=== PATIENT | female | born 1985 | race African-American/Black ===

== ENCOUNTER 2016-12-02 11:45 | Emergency (ER) | payer BC, MEDICAID ==
[~2016-12-02] VITALS: Ht 157.5 cm; Wt 72.0 kg
[2016-12-02] MEDS ORDERED: SODIUM CHLORIDE 0.9% 1,000 ML IV ONE (12:24)
[2016-12-02] MEDS ORDERED: ONDANSETRON 2MG/ML, 2ML IVPush ONE (12:30)
[2016-12-02] MEDS ORDERED: DIPHENHYDRAMINE 50 MG/ML, 1ML IVPush ONE (12:30)
[2016-12-02] MEDS ORDERED: METOCLOPRAMIDE 5 MG/ML, 2ML IVPush ONE (12:30)
[2016-12-02] MEDS ORDERED: FAMOTIDINE 20 MG/2 ML IVP ONE (12:30)
[2016-12-02] MEDS ORDERED: SODIUM CHLORIDE FLUSH 10ML SYR IVF ONE (12:30)
[2016-12-02] MEDS ORDERED: SODIUM CHLORIDE 0.9% 1,000ML IVBOLUS ONE (12:30)
[2016-12-02] MEDS ORDERED: ONDANSETRON 2MG/ML, 2ML ONE (12:49)
[2016-12-02] MEDS ORDERED: FAMOTIDINE 20 MG/2 ML ONE (12:49)
[2016-12-02] MEDS ORDERED: DIPHENHYDRAMINE 50 MG/ML, 1ML ONE (12:49)
[2016-12-02] MEDS ORDERED: METOCLOPRAMIDE 5 MG/ML, 2ML ONE (12:49)
[2016-12-02 12:55] LABS: HEMATOCRIT 43.5 % (34.6-47.8); HEMOGLOBIN 14.8 g/dL (11.7-16.4); WHITE BLOOD COUNT 11.1 x10^3/uL (3.4-10)
[2016-12-02 13:07] LABS: ASPARTATE AMINO TRANSFERASE 11 U/L (15-37); BLOOD UREA NITROGEN 7 mg/dL (7-18)
[2016-12-02 16:31] VITALS: BP 115/55
[2016-12-03] MEDS ORDERED: PHENERGAN SUPPOS (22:03)
[2016-12-03] MEDS ORDERED: ZOFRAN (22:03)
[2016-12-03] MEDS ORDERED: BENADRYL (22:03)
== END 2016-12-02 16:33 | disposition home or self-care (01) ==
LOC: ED 15:39
DX: O21.0 Mild hyperemesis gravidarum (principal); Z3A.21 21 weeks gestation of pregnancy
CPT/HCPCS: 36415; 80053; 81001; 85025; 96361; 96374; 96375; 99285; J1200; J2405; J2765; J7030; S0028

== ENCOUNTER 2016-12-03 21:56 | Inpatient (IN) | payer BC, MEDICAID ==
[~2016-12-03] VITALS: Ht 157.5 cm; Wt 71.4 kg
[2016-12-03] MEDS ORDERED: PHENERGAN SUPPOS (22:03)
[2016-12-03] MEDS ORDERED: ZOFRAN (22:03)
[2016-12-03] MEDS ORDERED: BENADRYL (22:03)
[2016-12-03] MEDS ORDERED: METOCLOPRAMIDE 5 MG/ML, 2ML ONE (22:48)
[2016-12-03] MEDS ORDERED: DIPHENHYDRAMINE 50 MG/ML, 1ML ONE (22:48)
[2016-12-03] MEDS ORDERED: ONDANSETRON 2MG/ML, 2ML ONE (22:49)
[2016-12-03] MEDS ORDERED: METOCLOPRAMIDE 5 MG/ML, 2ML IVPush ONE (23:00)
[2016-12-03] MEDS ORDERED: DIPHENHYDRAMINE 50 MG/ML, 1ML IVPush ONE (23:00)
[2016-12-03] MEDS ORDERED: SODIUM CHLORIDE 0.9% 1,000ML IVBOLUS ONE (23:00)
[2016-12-03] MEDS ORDERED: SODIUM CHLORIDE FLUSH 10ML SYR IVF ONE (23:00)
[2016-12-03] MEDS ORDERED: ONDANSETRON 2MG/ML, 2ML IVPush ONE (23:00)
[2016-12-03] MEDS ORDERED: PROMETHAZINE 25 MG/ML, 1ML IM PRN (23:30)
[2016-12-04] MEDS: D5%-0.9% NACL 1,000 ML IV SCH ×4 (00:40→21:40)
[2016-12-04 00:49] VITALS: BP 107/67
[2016-12-04 00:51] VITALS: BP 107/67
[2016-12-04] MEDS: METOCLOPRAMIDE 5 MG/ML, 2ML IVPush PRN ×2 (05:24→13:11)
[2016-12-04] MEDS: ONDANSETRON 2MG/ML, 2ML IVPush PRN ×2 (05:24→13:11)
[2016-12-04 05:31] LABS: BLOOD UREA NITROGEN 4 mg/dL (7-18)
[2016-12-04 06:40] VITALS: BP 100/60
[2016-12-04 13:03] VITALS: BP 100/58
[2016-12-04] MEDS: DIPHENHYDRAMINE 50 MG/ML, 1ML IVPush PRN (13:10)
[2016-12-04] MEDS ORDERED: POTASSIUM CHLORIDE 20 MEQ TAB.ER.PRT PO ONE (14:00)
[2016-12-04] MEDS: HEPARIN 5,000 UNITS/ML, 1ML SQ SCH (16:26)
[2016-12-04] MEDS: PYRIDOXINE 50MG TABLET PO SCH (18:12)
[2016-12-04] MEDS: DOXYLAMINE 25MG TABLET PO SCH (18:13)
[2016-12-04 18:31] VITALS: BP 101/64
[2016-12-05] MEDS: METOCLOPRAMIDE 5 MG/ML, 2ML IVPush PRN ×3 (01:14→15:56)
[2016-12-05] MEDS: DIPHENHYDRAMINE 50 MG/ML, 1ML IVPush PRN ×3 (01:14→15:56)
[2016-12-05] MEDS: ONDANSETRON 2MG/ML, 2ML IVPush PRN ×3 (01:14→15:56)
[2016-12-05] MEDS: HEPARIN 5,000 UNITS/ML, 1ML SQ SCH ×2 (01:15→10:16)
[2016-12-05 01:16] VITALS: BP 112/72
[2016-12-05] MEDS: D5%-0.9% NACL 1,000 ML IV SCH ×2 (04:07→10:16)
[2016-12-05 04:45] LABS: HEMOGLOBIN 12.8 g/dL (11.7-16.4); WHITE BLOOD COUNT 9.1 x10^3/uL (3.4-10)
[2016-12-05 04:54] LABS: BLOOD UREA NITROGEN 2 mg/dL (7-18)
[2016-12-05 07:13] VITALS: BP 110/75
[2016-12-05] MEDS: PYRIDOXINE 50MG TABLET PO SCH (08:09)
[2016-12-05] MEDS: DOXYLAMINE 25MG TABLET PO SCH (08:09)
[2016-12-05] MEDS ORDERED: PYRIDOXINE 50MG TABLET PO SCH ×2 (09:00)
[2016-12-05] MEDS ORDERED: DOXYLAMINE 25MG TABLET PO SCH (09:00)
[2016-12-05 13:59] VITALS: BP 105/70
[2016-12-05] MEDS ORDERED: PYRI50TA5 PO (14:43)
[2016-12-05] MEDS ORDERED: DOXY25TA45 PO (14:43)
== END 2016-12-05 17:03 | disposition home or self-care (01) | DRG 781 ==
LOC: ED 23:18 → SUATTDRO 23:23 → EDIP 23:25 → 3NE 12-04 00:30
PROVIDERS: ADMIT Hospitalist; ATTEND Hospitalist
DX: O21.1 Hyperemesis gravidarum with metabolic disturbance (principal); E86.0 Dehydration; Z3A.12 12 weeks gestation of pregnancy
CPT/HCPCS: 36415; 80048; 81001; 83735; 84100; 84443; 85025; 87086; 96361; 96374; 96375; J1644; J2405; J7042; J1200; J2765; J7030

== ENCOUNTER 2016-12-22 08:46 | Emergency (ER) | payer BC, MEDICAID ==
[~2016-12-22] VITALS: Ht 157.5 cm; Wt 68.9 kg
[~2016-12-22 08:46] MED LIST: BENADRYL; DOXY25TA45 PO; PHENERGAN SUPPOS; PYRI50TA5 PO; ZOFRAN
[2016-12-22] MEDS ORDERED: ONDANSETRON 2MG/ML, 2ML IVPush ONE (09:30)
[2016-12-22] MEDS ORDERED: SODIUM CHLORIDE 0.9% 1,000ML IVBOLUS ONE ×2 (09:30→11:30)
[2016-12-22] MEDS ORDERED: ONDANSETRON 2MG/ML, 2ML ONE (09:44)
[2016-12-22 09:51] LABS: HEMOGLOBIN 15.1 g/dL (11.7-16.4); WHITE BLOOD COUNT 11.6 x10^3/uL (3.4-10)
[2016-12-22 10:05] LABS: BLOOD UREA NITROGEN 4 mg/dL (7-18)
[2016-12-22 10:08] LABS: ASPARTATE AMINO TRANSFERASE 8 U/L (15-37)
[2016-12-22 12:57] VITALS: BP 108/62
== END 2016-12-22 13:01 | disposition home or self-care (01) ==
LOC: ED 09:52
DX: O26.892 Other specified pregnancy related conditions, second trimester (principal); O21.0 Mild hyperemesis gravidarum; E86.0 Dehydration; Z3A.15 15 weeks gestation of pregnancy
CPT/HCPCS: 36415; 80053; 81001; 83690; 85025; 87086; 96361; 96374; 99285; J2405; J7030

== ENCOUNTER 2016-12-27 14:39 | Emergency (ER) | payer BC, MEDICAID ==
[~2016-12-27] VITALS: Ht 157.5 cm; Wt 71.0 kg
[2016-12-27] MEDS ORDERED: SODIUM CHLORIDE FLUSH 10ML SYR IVF ONE (15:00)
[2016-12-27] MEDS ORDERED: ONDANSETRON 2MG/ML, 2ML IVPush ONE (15:00)
[2016-12-27] MEDS ORDERED: SODIUM CHLORIDE 0.9% 1,000ML IVBOLUS ONE ×2 (15:00→16:30)
[2016-12-27 15:11] LABS: HEMATOCRIT 44.2 % (34.6-47.8); HEMOGLOBIN 15.1 g/dL (11.7-16.4)
[2016-12-27 15:22] LABS: BLOOD UREA NITROGEN 3 mg/dL (7-18)
[2016-12-27 15:42] LABS: ASPARTATE AMINO TRANSFERASE 11 U/L (15-37)
[2016-12-27] MEDS ORDERED: ONDANSETRON 2MG/ML, 2ML ONE (16:18)
[2016-12-27] MEDS ORDERED: METOCLOPRAMIDE 5 MG/ML, 2ML ONE (18:42)
[2016-12-27] MEDS ORDERED: METOCLOPRAMIDE 5 MG/ML, 2ML IVPush ONE (19:00)
[2016-12-27] MEDS ORDERED: D5%-LACTATED RINGERS 1,000 ML IV SCH (19:00)
[2016-12-27 20:16] VITALS: BP 107/64
== END 2016-12-27 20:19 | disposition home or self-care (01) ==
LOC: ED 16:09
DX: O26.892 Other specified pregnancy related conditions, second trimester (principal); O21.0 Mild hyperemesis gravidarum; O21.9 Vomiting of pregnancy, unspecified; E86.0 Dehydration; Z3A.16 16 weeks gestation of pregnancy
CPT/HCPCS: 36415; 76805; 80053; 81001; 82010; 84702; 85025; 87086; 93005; 96361; 96374; 96375; 99285; J2405; J2765; J7030; J7121

== ENCOUNTER 2017-01-03 17:24 | Inpatient (IN) | payer BC, MEDICAID ==
[~2017-01-03] VITALS: Ht 157.5 cm; Wt 70.7 kg
[2017-01-03] MEDS ORDERED: METOCLOPRAMIDE 5 MG/ML, 2ML IVPush ONE (18:00)
[2017-01-03] MEDS ORDERED: SODIUM CHLORIDE 0.9% 1,000ML IVBOLUS ONE (18:00)
[2017-01-03] MEDS ORDERED: SODIUM CHLORIDE FLUSH 10ML SYR IVF ONE (18:00)
[2017-01-03] MEDS ORDERED: METOCLOPRAMIDE 5 MG/ML, 2ML ONE (18:26)
[2017-01-03 18:53] LABS: HEMATOCRIT 47.3 % (34.6-47.8); HEMOGLOBIN 16.4 g/dL (11.7-16.4); WHITE BLOOD COUNT 14.1 x10^3/uL (3.4-10)
[2017-01-03 18:54] LABS: ASPARTATE AMINO TRANSFERASE 14 U/L (15-37); BLOOD UREA NITROGEN 7 mg/dL (7-18)
[2017-01-03] MEDS ORDERED: DIPH25CA61 IV (18:56)
[2017-01-03] MEDS ORDERED: METO10TA82 IV (18:56)
[2017-01-03] MEDS ORDERED: ONDA4SOL2 IV (18:56)
[2017-01-03 19:11] LABS: DAU SCREEN DISCLAIMER
[2017-01-03] MEDS: POTASSIUM CHLORIDE 40 MEQ in D5%-LACTATED RINGERS 1,000 ML IV SCH ×2 (20:47→23:35)
[2017-01-03] MEDS: SODIUM CHLORIDE 0.9% 1,000 ML IV ONE ×2 (20:47→20:57)
[2017-01-04 00:33] VITALS: BP 92/58
[2017-01-04] MEDS: POTASSIUM CHLORIDE 40 MEQ in D5%-LACTATED RINGERS 1,000 ML IV SCH ×3 (01:53→11:39)
[2017-01-04 02:00] VITALS: BP 120/81
[2017-01-04] MEDS ORDERED: ONDANSETRON 2MG/ML, 2ML IVPush PRN (02:30)
[2017-01-04] MEDS ORDERED: METOCLOPRAMIDE 5 MG/ML, 2ML IVPush PRN (02:30)
[2017-01-04] MEDS ORDERED: DIPHENHYDRAMINE 50 MG/ML, 1ML IVPush PRN (02:30)
[2017-01-04 07:54] VITALS: BP 114/78
[2017-01-04 12:51] VITALS: BP 108/74
== END 2017-01-04 18:15 | disposition home or self-care (01) | DRG 781 ==
LOC: ED 21:13 → EDIP 22:28 → 4WST 01-04 00:21
PROVIDERS: ADMIT Obstetrics & Gynecology; ATTEND Obstetrics & Gynecology
DX: O21.1 Hyperemesis gravidarum with metabolic disturbance (principal); E86.0 Dehydration; O26.892 Other specified pregnancy related conditions, second trimester; R00.0 Tachycardia, unspecified; O99.282 Endocrine, nutritional and metabolic diseases complicating pregnancy, second trimester; Z3A.17 17 weeks gestation of pregnancy
CPT/HCPCS: 36415; 76805; 80053; 80307; 81001; 84443; 85025; 87086; 93005; J2405; J3480; G0479; J1200; J2765; J7030; J7121

== ENCOUNTER 2017-04-26 22:29 | Inpatient (IN) | payer BC, MEDICAID ==
[~2017-04-26] VITALS: Ht 157.5 cm; Wt 81.8 kg
[~2017-04-26 22:29] MED LIST changes: +DIPH25CA61 IV; +METO10TA82 IV; +ONDA4SOL2 IV
[2017-04-26 23:00] VITALS: BP 113/66
[2017-04-26] MEDS ORDERED: TERBUTALINE 1 MG/ML, 1ML ONE (23:06)
[2017-04-26] MEDS ORDERED: BETAMETHASONE 6 MG/ML, 5ML IM ONE (23:26)
[2017-04-26] MEDS ORDERED: ONDANSETRON 2MG/ML, 2ML IVPush PRN (23:30)
[2017-04-26] MEDS ORDERED: MAGNESIUM SULF. PMX 20GM/500ML 500 ML IV ONE (23:30)
[2017-04-26] MEDS ORDERED: MAGNESIUM SULFATE PMX 4GM/100M 100 ML IVPB ONE (23:30)
[2017-04-26] MEDS ORDERED: TERBUTALINE 1 MG/ML, 1ML SQ ONE (23:30)
[2017-04-26] MEDS ORDERED: DIPHENHYDRAMINE 25 MG CAPSULE PO PRN (23:30)
[2017-04-26] MEDS ORDERED: ACETAMINOPHEN 325 MG TABLET PO PRN (23:30)
[2017-04-26] MEDS: LACTATED RINGERS 1,000 ML IV SCH (23:36)
[2017-04-26 23:43] LABS: BASOPHILS # (AUTO) 0.06 x10^3/uL (0-0.1); BASOPHILS % (AUTO) 1 % (0-1); EOSINOPHILS # (AUTO) 0.07 x10^3/uL (0-0.4); EOSINOPHILS % (AUTO) 1 % (1-7); LYMPHOCYTES # (AUTO) 2.82 x10^3/uL (1-3.4); LYMPHOCYTES % (AUTO) 27 % (22-44); MD NO; MEAN CORPUSCULAR HEMOGLOBIN 27.4 pg (27.0-34.8); MEAN CORPUSCULAR HGB CONC 32.6 g/dL (32.4-35.8); MEAN PLATELET VOLUME 7.6 fL (7.4-10.4); MONOCYTES # (AUTO) 0.73 x10^3/uL (0.2-0.8); MONOCYTES % (AUTO) 7 % (2-9); NEUTROPHILS % (AUTO) 65 % (42-75); PLATELET COUNT 341 x10^3/uL (130-400); RED BLOOD COUNT 4.04 x10^6/uL (3.82-5.3); RED CELL DISTRIBUTION WIDTH 15.5 % (9.6-15.2)
[2017-04-26] MEDS: BETAMETHASONE 6 MG/ML, 5ML IM SCH (23:45)
[2017-04-27] MEDS: AMPICILLIN 2 GM in SODIUM CHLORIDE 0.9% 100 ML IV SCH ×5 (00:01→23:50)
[2017-04-27 00:03] LABS: MICROSCOPIC NOT IND
[2017-04-27] MEDS ORDERED: MAGNESIUM SULF. PMX 20GM/500ML 500 ML IV ONE ×2 (08:53→18:36)
[2017-04-27] MEDS: MAGNESIUM SULF. PMX 20GM/500ML 500 ML IV SCH ×2 (09:04→18:47)
[2017-04-27] MEDS: LACTATED RINGERS 1,000 ML IV SCH ×2 (09:56→18:39)
[2017-04-27] MEDS ORDERED: ACETAMINOPHEN 325 MG TABLET ONE (23:48)
[2017-04-27] MEDS: BETAMETHASONE 6 MG/ML, 5ML IM SCH (23:50)
[2017-04-28] MEDS: AMPICILLIN 2 GM in SODIUM CHLORIDE 0.9% 100 ML IV SCH (05:30)
[2017-04-28] MEDS ORDERED: MAGNESIUM SULF. PMX 20GM/500ML 500 ML IV ONE (05:42)
[2017-04-28] MEDS: LACTATED RINGERS 1,000 ML IV SCH (05:44)
[2017-04-28] MEDS: MAGNESIUM SULF. PMX 20GM/500ML 500 ML IV SCH (05:47)
[2017-04-28 08:05] VITALS: BP 117/58
[2017-04-28] MEDS ORDERED: DOCUSATE 100 MG CAPSULE ONE (08:11)
[2017-04-28] MEDS ORDERED: DOCUSATE 100 MG CAPSULE PO PRN (08:30)
== END 2017-04-28 15:30 | disposition home or self-care (01) | DRG 781 ==
LOC: LDOP 22:29 → LDIP 04-27 01:52
PROVIDERS: ADMIT Obstetrics & Gynecology; ATTEND Obstetrics & Gynecology
DX: O21.0 Mild hyperemesis gravidarum (principal); O60.03 Preterm labor without delivery, third trimester; Z3A.33 33 weeks gestation of pregnancy
CPT/HCPCS: 36415; 81003; 83735; 85025; 86850; 86900; 87081; J0290; J0702; J3105; J3475; J7120

== ENCOUNTER 2017-05-14 16:16 | Observation (INO) | payer BC, MEDICAID ==
[~2017-05-14] VITALS: Ht 157.5 cm; Wt 84.1 kg
[2017-05-14 16:28] VITALS: BP 129/60
[2017-05-14 18:00] LABS: MICROSCOPIC INDICATED
== END 2017-05-14 20:15 | disposition home or self-care (01) ==
LOC: LDOP 16:16 → LDIP 18:32
PROVIDERS: ADMIT Obstetrics & Gynecology; ATTEND Obstetrics & Gynecology
DX: O42.90 Premature rupture of membranes, unspecified as to length of time between rupture and onset of labor, unspecified weeks of gestation (principal); Z3A.00 Weeks of gestation of pregnancy not specified
CPT/HCPCS: 59025; 81001; 87086; 89060; G0378; 99211; G0463; Q0114

== ENCOUNTER 2017-05-30 08:11 | Inpatient (IN) | payer BC, MEDICAID ==
[~2017-05-30] VITALS: Ht 157.5 cm; Wt 86.3 kg
[2017-05-30] MEDS ORDERED: OXYTOCIN 30U/ 0.9% NaCL 500ML 500 ML IV ONE (08:13)
[2017-05-30] MEDS ORDERED: D5%-LACTATED RINGERS 1,000 ML IV SCH (08:13)
[2017-05-30] MEDS ORDERED: NEWBORN KIT ONE (08:23)
[2017-05-30] MEDS ORDERED: LIDOCAINE-MPF 1%, 5ML ONE (08:24)
[2017-05-30] MEDS ORDERED: FENTANYL PF 100 MCG/2ML ONE (08:24)
[2017-05-30] MEDS ORDERED: OXYTOCIN 30U/ 0.9% NaCL 500ML 500 ML ONE (08:24)
[2017-05-30] MEDS ORDERED: MISOPROSTOL 200 MCG TABLET ONE (08:24)
[2017-05-30] MEDS ORDERED: PLEASE ENTER HEIGHT AND WEIGHT MC SCH (08:30)
[2017-05-30] MEDS ORDERED: ONDANSETRON 2MG/ML, 2ML IVPush PRN (08:30)
[2017-05-30] MEDS ORDERED: CALCIUM CARBONATE 500 MG TAB.CHEW PO PRN ×2 (08:30→15:30)
[2017-05-30] MEDS ORDERED: FENTANYL PF 100 MCG/2ML IVPush PRN (08:30)
[2017-05-30 08:31] LABS: BASOPHILS # (AUTO) 0.05 x10^3/uL (0-0.1); BASOPHILS % (AUTO) 1 % (0-1); EOSINOPHILS # (AUTO) 0.07 x10^3/uL (0-0.4); EOSINOPHILS % (AUTO) 1 % (1-7); LYMPHOCYTES # (AUTO) 2.83 x10^3/uL (1-3.4); LYMPHOCYTES % (AUTO) 27 % (22-44); MD NO; MEAN CORPUSCULAR HEMOGLOBIN 25.9 pg (27.0-34.8); MEAN CORPUSCULAR HGB CONC 32.3 g/dL (32.4-35.8); MEAN CORPUSCULAR VOLUME 80.3 fL (80-100); MEAN PLATELET VOLUME 7.7 fL (7.4-10.4); MONOCYTES # (AUTO) 0.71 x10^3/uL (0.2-0.8); MONOCYTES % (AUTO) 7 % (2-9); NEUTROPHILS # (AUTO) 6.85 x10^3/uL (1.8-6.8); NEUTROPHILS % (AUTO) 65 % (42-75); PLATELET COUNT 349 x10^3/uL (130-400); RED BLOOD COUNT 4.57 x10^6/uL (3.82-5.3); RED CELL DISTRIBUTION WIDTH 16.9 % (9.6-15.2)
[2017-05-30] MEDS: LACTATED RINGERS 1,000 ML IV SCH ×2 (08:32→11:42)
[2017-05-30 08:39] VITALS: BP 132/84
[2017-05-30] MEDS ORDERED: LACTATED RINGERS 1,000 ML IV SCH (09:23)
[2017-05-30] MEDS ORDERED: FENTANYL/BUPIV./NS/PF 250 ML EPIDCONT SCH (09:23)
[2017-05-30] MEDS ORDERED: FENTANYL/BUPIV./NS/PF 250 ML EPIDCONT ONE (09:26)
[2017-05-30] MEDS ORDERED: BUPIVACAINE/PF 0.25% ONE (09:26)
[2017-05-30] MEDS ORDERED: EPHEDRINE 50 MG/ML, 1ML IVPush PRN (09:30)
[2017-05-30] MEDS ORDERED: LACTATED RINGERS 1,000 ML IVBOLUS PRN (09:30)
[2017-05-30] MEDS ORDERED: NALOXONE 0.4 MG/ML, 1ML IVPush PRN (09:30)
[2017-05-30] MEDS ORDERED: EPHEDRINE 50 MG/ML, 1ML ONE (10:05)
[2017-05-30] MEDS ORDERED: ONDANSETRON ODT 4 MG ONE (10:05)
[2017-05-30] MEDS ORDERED: ONDANSETRON ODT 4 MG PO PRN (10:30)
[2017-05-30] MEDS: OXYTOCIN 30U/ 0.9% NaCL 500ML 500 ML IV SCH (15:18)
[2017-05-30] MEDS ORDERED: BISACODYL 10 MG SUPP PR PRN (15:30)
[2017-05-30] MEDS ORDERED: METOCLOPRAMIDE 5 MG/ML, 2ML IV PRN (15:30)
[2017-05-30] MEDS ORDERED: GLYCERIN ADULT SUPP PR PRN (15:30)
[2017-05-30] MEDS ORDERED: ACETAMINOPHEN 325 MG TABLET PO PRN ×3 (15:30)
[2017-05-30] MEDS ORDERED: MISOPROSTOL 200 MCG TABLET PR PRN (15:30)
[2017-05-30] MEDS ORDERED: ONDANSETRON 2MG/ML, 2ML IV PRN (15:30)
[2017-05-30] MEDS ORDERED: CARBOPROST TROMETHAMINE 250 MCG/ML, 1ML IM PRN (15:30)
[2017-05-30] MEDS ORDERED: MAGNESIUM HYDROXIDE 8%, 30ML UDC PO PRN (15:30)
[2017-05-30] MEDS ORDERED: OXYcodone/APAP 5/325MG TABLET PO PRN ×2 (15:30)
[2017-05-30] MEDS ORDERED: METHYLERGONOVINE 0.2 MG/ML IM PRN (15:30)
[2017-05-30] MEDS ORDERED: IBUPROFEN 600 MG TABLET ONE (16:53)
[2017-05-30] MEDS: IBUPROFEN 600 MG TABLET PO PRN ×2 (16:59→23:01)
[2017-05-30 20:00] VITALS: BP 102/67
[2017-05-30] MEDS ORDERED: DIPH,PERTUSS(ACELL),TET VAC/PF NC IM-VACC ONE (21:35)
[2017-05-30] MEDS: DOCUSATE 100 MG CAPSULE PO PRN (23:01)
[2017-05-30 23:12] LABS: MEAN CORPUSCULAR HEMOGLOBIN 26.6 pg (27.0-34.8); MEAN CORPUSCULAR HGB CONC 32.4 g/dL (32.4-35.8); MEAN CORPUSCULAR VOLUME 82.1 fL (80-100); MEAN PLATELET VOLUME 8.1 fL (7.4-10.4); PLATELET COUNT 293 x10^3/uL (130-400); RED BLOOD COUNT 3.96 x10^6/uL (3.82-5.3); RED CELL DISTRIBUTION WIDTH 17.1 % (9.6-15.2)
[2017-05-30 23:28] LABS: BASOPHILS # (AUTO) 0.02 x10^3/uL (0-0.1); BASOPHILS % (AUTO) 0 % (0-1); EOSINOPHILS # (AUTO) 0.06 x10^3/uL (0-0.4); EOSINOPHILS % (AUTO) 0 % (1-7); LYMPHOCYTES # (AUTO) 2.12 x10^3/uL (1-3.4); LYMPHOCYTES % (AUTO) 12 % (22-44); MD SCAN; MONOCYTES # (AUTO) 1.31 x10^3/uL (0.2-0.8); MONOCYTES % (AUTO) 7 % (2-9); NEUTROPHILS # (AUTO) 14.33 x10^3/uL (1.8-6.8); NEUTROPHILS % (AUTO) 80 % (42-75)
[2017-05-31 00:15] VITALS: BP 108/69
[2017-05-31] MEDS: OXYTOCIN 30U/ 0.9% NaCL 500ML 500 ML IV SCH ×2 (01:18→05:20)
[2017-05-31] MEDS: IBUPROFEN 600 MG TABLET PO PRN (05:56)
[2017-05-31 08:00] VITALS: BP 121/80
[2017-05-31] MEDS: DOCUSATE 100 MG CAPSULE PO PRN (08:59)
[2017-05-31] MEDS ORDERED: PRENATAL VIT/IRON/FA 1 EACH TABLET PO SCH (09:00)
[2017-05-31] MEDS ORDERED: IBUP-1222 PO (11:31)
[2017-05-31] MEDS ORDERED: DOCU-131 PO (11:32)
[2017-05-31 12:00] VITALS: BP 120/78
== END 2017-05-31 14:56 | disposition home or self-care (01) | DRG 775 ==
LOC: LDOP 08:11 → LDIP 08:21 → 2NW 18:00
PROVIDERS: ADMIT Obstetrics & Gynecology; ATTEND Obstetrics & Gynecology
PROC: 10E0XZZ Delivery of Products of Conception, External Approach (ICD-10-PCS; principal; 2017-05-30)
PROC: 10907ZC Drainage of Amniotic Fluid, Therapeutic from Products of Conception, Via Natural or Artificial Opening (ICD-10-PCS; 2017-05-30)
PROC: 3E0R3BZ Introduction of Anesthetic Agent into Spinal Canal, Percutaneous Approach (ICD-10-PCS; 2017-05-30)
PROC: 00HU33Z Insertion of Infusion Device into Spinal Canal, Percutaneous Approach (ICD-10-PCS; 2017-05-30)
DX: O66.0 Obstructed labor due to shoulder dystocia (principal); Z23 Encounter for immunization; Z37.0 Single live birth; Z3A.38 38 weeks gestation of pregnancy
CPT/HCPCS: 36415; 85025; 86850; 86900; 90715; J3490; Q0162; J3010; J7120

== ENCOUNTER 2018-08-21 10:34 | Observation (INO) | payer BC, MEDICAID ==
[~2018-08-21] VITALS: Ht 157.5 cm; Wt 78.0 kg
[~2018-08-21 10:34] MED LIST changes: +DOCU-131 PO; +IBUP-1222 PO; -PYRI50TA5 PO; +PYRI50TA6 PO
[2018-08-21 11:05] LABS: MICROSCOPIC INDICATED
[2018-08-21] MEDS ORDERED: PLEASE ENTER HEIGHT AND WEIGHT MC SCH (12:00)
[2018-08-21] MEDS ORDERED: D5%-LACTATED RINGERS 500ML IVBOLUS ONE (12:00)
[2018-08-21 12:10] LABS: BASOPHILS # (AUTO) 0.03 x10^3/uL (0-0.1); BASOPHILS % (AUTO) 0 % (0-1); EOSINOPHILS # (AUTO) 0.15 x10^3/uL (0-0.4); EOSINOPHILS % (AUTO) 2 % (1-7); LYMPHOCYTES % (AUTO) 13 % (22-44); MD NO; MEAN CORPUSCULAR HEMOGLOBIN 29.8 pg (27.0-34.8); MEAN CORPUSCULAR HGB CONC 33.2 g/dL (32.4-35.8); MEAN CORPUSCULAR VOLUME 89.8 fL (80-100); MEAN PLATELET VOLUME 7.2 fL (7.4-10.4); MONOCYTES # (AUTO) 0.21 x10^3/uL (0.2-0.8); MONOCYTES % (AUTO) 3 % (2-9); NEUTROPHILS % (AUTO) 83 % (42-75); PLATELET COUNT 361 x10^3/uL (130-400); RED CELL DISTRIBUTION WIDTH 13.9 % (9.6-15.2)
[2018-08-21 12:23] LABS: ALBUMIN 2.4 g/dL (3.4-5.0); CHLORIDE 105 mmol/L (98-107)
[2018-08-21 12:33] LABS: ALANINE AMINOTRANSFERASE 19 U/L (12-78); ALKALINE PHOSPHATASE 85 U/L (45-117); ANION GAP 7 mmol/L (5-15); BILIRUBIN,TOTAL 0.4 mg/dL (0.2-1.0); CALCIUM 8.5 mg/dL (8.5-10.1); CREATININE 0.53 mg/dL (0.55-1.02); TOTAL PROTEIN 7.5 g/dL (6.4-8.2)
[2018-08-21] MEDS ORDERED: LACTATED RINGERS 1,000 ML IVBOLUS ONE (13:00)
[2018-08-21 13:41] LABS: RAPID INFLUENZA A Negative (Negative); RAPID INFLUENZA B Negative (Negative)
== END 2018-08-21 14:10 | disposition home or self-care (01) ==
LOC: LDOP 10:34 → LDIP 12:30
PROVIDERS: ADMIT Obstetrics & Gynecology; ATTEND Obstetrics & Gynecology
DX: O99.512 Diseases of the respiratory system complicating pregnancy, second trimester (principal); J06.9 Acute upper respiratory infection, unspecified; O99.282 Endocrine, nutritional and metabolic diseases complicating pregnancy, second trimester; E86.0 Dehydration; O76 Abnormality in fetal heart rate and rhythm complicating labor and delivery; O99.012 Anemia complicating pregnancy, second trimester; O99.352 Diseases of the nervous system complicating pregnancy, second trimester; G43.909 Migraine, unspecified, not intractable, without status migrainosus; Z3A.20 20 weeks gestation of pregnancy
CPT/HCPCS: 36415; 80053; 81001; 85025; 87086; 87400; 96361; 99211; G0378; J7120; J7121; 96360; 99201; G0463

== ENCOUNTER 2018-12-21 08:57 | Outpatient (CLI) | payer MEDICAID ==
[~2018-12-21] VITALS: Ht 157.5 cm; Wt 88.6 kg
[~2018-12-21 08:57] MED LIST changes: -PYRI50TA6 PO; +PYRI50TA7 PO
== END 2018-12-21 10:17 | disposition home or self-care (01) ==
LOC: LDOP 08:57
PROVIDERS: ATTEND Obstetrics & Gynecology
DX: O26.893 Other specified pregnancy related conditions, third trimester (principal); Z3A.37 37 weeks gestation of pregnancy
CPT/HCPCS: 59025; 99211; G0463

== ENCOUNTER 2018-12-27 01:12 | Inpatient (IN) | payer MEDICAID ==
[~2018-12-27] VITALS: Ht 157.5 cm; Wt 90.0 kg
[2018-12-27 01:10] VITALS: BP 144/71
[2018-12-27] MEDS ORDERED: OXYTOCIN 30U/ 0.9% NaCL 500ML 500 ML ONE (01:23)
[2018-12-27] MEDS ORDERED: CALCIUM CARBONATE 500 MG TAB.CHEW PO PRN ×2 (02:00→07:30)
[2018-12-27] MEDS ORDERED: FENTANYL PF 100 MCG/2ML IVPush PRN (02:00)
[2018-12-27] MEDS ORDERED: ONDANSETRON 2MG/ML, 2ML IVPush PRN (02:00)
[2018-12-27] MEDS ORDERED: TERBUTALINE 1 MG/ML, 1ML SQ PRN (02:00)
[2018-12-27] MEDS ORDERED: OXYTOCIN 30U/ 0.9% NaCL 500ML 500 ML IV ONE (02:00)
[2018-12-27] MEDS ORDERED: TERBUTALINE 1 MG/ML, 1ML IVPush PRN (02:00)
[2018-12-27] MEDS ORDERED: D5%-LACTATED RINGERS 1,000 ML IV SCH (02:00)
[2018-12-27] MEDS ORDERED: FENTANYL PF 100 MCG/2ML IV PRN (02:00)
[2018-12-27 02:41] LABS: BASOPHILS # (AUTO) 0.14 x10^3/uL (0-0.1); BASOPHILS % (AUTO) 1 % (0-1); EOSINOPHILS # (AUTO) 0.08 x10^3/uL (0-0.4); EOSINOPHILS % (AUTO) 1 % (1-7); LYMPHOCYTES # (AUTO) 2.76 x10^3/uL (1-3.4); LYMPHOCYTES % (AUTO) 25 % (22-44); MD NO; MEAN CORPUSCULAR HEMOGLOBIN 26.9 pg (27.0-34.8); MEAN CORPUSCULAR HGB CONC 32.4 g/dL (32.4-35.8); MEAN CORPUSCULAR VOLUME 83.1 fL (80-100); MEAN PLATELET VOLUME 7.6 fL (7.4-10.4); MONOCYTES # (AUTO) 0.75 x10^3/uL (0.2-0.8); MONOCYTES % (AUTO) 7 % (2-9); NEUTROPHILS # (AUTO) 7.29 x10^3/uL (1.8-6.8); NEUTROPHILS % (AUTO) 66 % (42-75); PLATELET COUNT 415 x10^3/uL (130-400); RED BLOOD COUNT 4.28 x10^6/uL (3.82-5.3); RED CELL DISTRIBUTION WIDTH 16.8 % (9.6-15.2)
[2018-12-27] MEDS ORDERED: FENTANYL PF 100 MCG/2ML ONE ×2 (03:43→04:00)
[2018-12-27] MEDS: LACTATED RINGERS 1,000 ML IV SCH ×2 (03:47→08:53)
[2018-12-27] MEDS ORDERED: FENTANYL/BUPIV./NS/PF 250 ML EPIDCONT ONE (03:51)
[2018-12-27] MEDS ORDERED: LIDOCAINE/PF 1.5%-EPI 1:200K, 30ML ONE (04:00)
[2018-12-27] MEDS ORDERED: EPHEDRINE 50 MG/ML, 1ML ONE (04:00)
[2018-12-27] MEDS ORDERED: BUPIVACAINE 0.25% ONE (04:00)
[2018-12-27] MEDS ORDERED: LIDOCAINE 1%, 20ML ONE (04:00)
[2018-12-27] MEDS ORDERED: ONDANSETRON 2MG/ML, 2ML ONE (06:10)
[2018-12-27] MEDS ORDERED: NEWBORN KIT ONE (07:23)
[2018-12-27] MEDS ORDERED: ONDANSETRON 2MG/ML, 2ML IV PRN (07:30)
[2018-12-27] MEDS ORDERED: DOCUSATE 100 MG CAPSULE PO PRN (07:30)
[2018-12-27] MEDS ORDERED: ACETAMINOPHEN 325 MG TABLET PO PRN (07:30)
[2018-12-27] MEDS ORDERED: MISOPROSTOL 200 MCG TABLET PR PRN (07:30)
[2018-12-27] MEDS ORDERED: SIMETHICONE 80 MG CHEW TAB PO PRN (07:30)
[2018-12-27] MEDS: OXYTOCIN 30U/ 0.9% NaCL 500ML 500 ML IV SCH ×2 (08:00→17:19)
[2018-12-27] MEDS ORDERED: IBUPROFEN 600 MG TABLET ONE (08:50)
[2018-12-27] MEDS: IBUPROFEN 600 MG TABLET PO PRN ×3 (08:52→21:47)
[2018-12-27] MEDS: PRENATAL VIT/IRON/FA 1 EACH TABLET PO SCH (09:00)
[2018-12-27] MEDS: OXYcodone/APAP 5/325MG TABLET PO PRN ×3 (10:10→19:33)
[2018-12-27 12:30] VITALS: BP 103/62
[2018-12-27 15:56] VITALS: BP 111/73
[2018-12-27 19:40] VITALS: BP 103/72
[2018-12-27 23:13] LABS: BASOPHILS # (AUTO) 0.09 x10^3/uL (0-0.1); BASOPHILS % (AUTO) 1 % (0-1); EOSINOPHILS % (AUTO) 1 % (1-7); LYMPHOCYTES # (AUTO) 2.61 x10^3/uL (1-3.4); LYMPHOCYTES % (AUTO) 19 % (22-44); MD NO; MEAN CORPUSCULAR HEMOGLOBIN 25.7 pg (27.0-34.8); MEAN CORPUSCULAR HGB CONC 31.1 g/dL (32.4-35.8); MEAN CORPUSCULAR VOLUME 82.8 fL (80-100); MEAN PLATELET VOLUME 7.4 fL (7.4-10.4); MONOCYTES # (AUTO) 0.89 x10^3/uL (0.2-0.8); MONOCYTES % (AUTO) 6 % (2-9); NEUTROPHILS # (AUTO) 10.39 x10^3/uL (1.8-6.8); NEUTROPHILS % (AUTO) 74 % (42-75); PLATELET COUNT 337 x10^3/uL (130-400); RED BLOOD COUNT 3.94 x10^6/uL (3.82-5.3); RED CELL DISTRIBUTION WIDTH 16.5 % (9.6-15.2)
[2018-12-28 00:40] VITALS: BP 113/74
[2018-12-28] MEDS: OXYcodone/APAP 5/325MG TABLET PO PRN ×4 (00:44→12:46)
[2018-12-28] MEDS: OXYTOCIN 30U/ 0.9% NaCL 500ML 500 ML IV SCH (03:19)
[2018-12-28 04:00] VITALS: BP 126/83
[2018-12-28] MEDS: IBUPROFEN 600 MG TABLET PO PRN ×2 (04:29→10:52)
[2018-12-28] MEDS ORDERED: IBUP-1222 PO (05:46)
[2018-12-28 07:50] VITALS: BP 114/79
[2018-12-28] MEDS: PRENATAL VIT/IRON/FA 1 EACH TABLET PO SCH (08:34)
== END 2018-12-28 13:33 | disposition home or self-care (01) | DRG 807 ==
LOC: LDOP 01:12 → LDIP 06:45 → 2NW 09:32
PROVIDERS: ADMIT Obstetrics & Gynecology; ATTEND Obstetrics & Gynecology
PROC: 10E0XZZ Delivery of Products of Conception, External Approach (ICD-10-PCS; principal; 2018-12-27)
PROC: 3E0R3BZ Introduction of Anesthetic Agent into Spinal Canal, Percutaneous Approach (ICD-10-PCS; 2018-12-27)
PROC: 00HU33Z Insertion of Infusion Device into Spinal Canal, Percutaneous Approach (ICD-10-PCS; 2018-12-27)
DX: O99.354 Diseases of the nervous system complicating childbirth (principal); Z37.0 Single live birth; G43.909 Migraine, unspecified, not intractable, without status migrainosus; Z3A.38 38 weeks gestation of pregnancy; Z80.3 Family history of malignant neoplasm of breast; Z80.41 Family history of malignant neoplasm of ovary; Z83.3 Family history of diabetes mellitus; Z84.89 Family history of other specified conditions; Z81.8 Family history of other mental and behavioral disorders; Z84.1 Family history of disorders of kidney and ureter
CPT/HCPCS: 36415; J3490; 85025; 86850; 86900; G0378; J3010; J2590; J7120

== ENCOUNTER 2018-12-29 15:26 | Emergency (ER) | payer OTHER, MEDICAID ==
[~2018-12-29] VITALS: Ht 157.5 cm; Wt 87.6 kg
--- NOTE | 2018-12-29 15:50 | NUR ---
PT C/O RIGHT CHEST CP STARTING THIS AM AT ABOUT 0100. DESCRIBES TIGHTNESS THAT RADIATES TO RIGHT SHOULDER. PT HAD BABY 2 DAYS AGO, WENT HOME YESTERDAY. PT WAS SITTING THERE WHEN IT STARTS, PAIN COMES AND GOES. CONNECTED TO MONITORING. CALL LIGHT IN REACH. MD AT BEDSIDE. AWAITING ORDERS AT THIS TIME.
[2018-12-29 16:26] LABS: ALANINE AMINOTRANSFERASE 24 U/L (12-78); ALBUMIN 2.2 g/dL (3.4-5.0); ANION GAP 6 mmol/L (5-15); CALCIUM 8.4 mg/dL (8.5-10.1); CHLORIDE 108 mmol/L (98-107); CREATININE 0.54 mg/dL (0.55-1.02)
[2018-12-29 16:30] LABS: ALKALINE PHOSPHATASE 83 U/L (45-117); BILIRUBIN,TOTAL 0.4 mg/dL (0.2-1.0); TROPONIN I < 0.015 ng/mL (0.000-0.045)
[2018-12-29 16:35] LABS: BASOPHILS # (AUTO) 0.04 x10^3/uL (0-0.1); BASOPHILS % (AUTO) 1 % (0-1); EOSINOPHILS # (AUTO) 0.28 x10^3/uL (0-0.4); EOSINOPHILS % (AUTO) 4 % (1-7); LYMPHOCYTES # (AUTO) 2.41 x10^3/uL (1-3.4); LYMPHOCYTES % (AUTO) 30 % (22-44); MD NO; MEAN CORPUSCULAR HEMOGLOBIN 26.8 pg (27.0-34.8); MEAN CORPUSCULAR HGB CONC 31.9 g/dL (32.4-35.8); MEAN PLATELET VOLUME 7.8 fL (7.4-10.4); MONOCYTES # (AUTO) 0.53 x10^3/uL (0.2-0.8); MONOCYTES % (AUTO) 7 % (2-9); NEUTROPHILS # (AUTO) 4.86 x10^3/uL (1.8-6.8); NEUTROPHILS % (AUTO) 60 % (42-75); PLATELET COUNT 361 x10^3/uL (130-400); RED BLOOD COUNT 4.09 x10^6/uL (3.82-5.3); RED CELL DISTRIBUTION WIDTH 16.6 % (9.6-15.2)
--- NOTE | 2018-12-29 17:06 | NUR ---
ALL RESULTS ARE BACK AT THIS TIME. CHART UP FOR RECHECK.
--- NOTE | 2018-12-29 17:43 | NUR ---
break rn: iv established for cta
--- NOTE | 2018-12-29 17:50 | NUR ---
BREAK RN: PT TO CT
[2018-12-29] MEDS ORDERED: OMNIPAQUE 350 MG/ML, 100ML BOTTLE ONE (18:05)
[2018-12-29 18:25] VITALS: BP 125/69
== END 2018-12-29 18:27 | disposition home or self-care (01) ==
LOC: ED 16:06
DX: O90.89 Other complications of the puerperium, not elsewhere classified (principal); R07.89 Other chest pain; M79.89 Other specified soft tissue disorders
CPT/HCPCS: 36415; 71045; 71275; 80053; 84484; 85025; 85379; 93005; 99284; Q9967

== ENCOUNTER 2019-05-29 11:03 | Outpatient (CLI) | payer MEDICAID ==
[2019-05-29] MEDS ORDERED: NONE PER PT (11:36)
[2019-05-29 11:55] LABS: BASOPHILS # (AUTO) 0.03 x10^3/uL (0-0.1); BASOPHILS % (AUTO) 0 % (0-1); EOSINOPHILS % (AUTO) 2 % (1-7); LYMPHOCYTES # (AUTO) 2.79 x10^3/uL (1-3.4); LYMPHOCYTES % (AUTO) 45 % (22-44); MD NO; MEAN CORPUSCULAR HEMOGLOBIN 29.5 pg (27.0-34.8); MEAN CORPUSCULAR HGB CONC 33.3 g/dL (32.4-35.8); MEAN CORPUSCULAR VOLUME 88.8 fL (80-100); MEAN PLATELET VOLUME 8.2 fL (7.4-10.4); MONOCYTES # (AUTO) 0.47 x10^3/uL (0.2-0.8); MONOCYTES % (AUTO) 8 % (2-9); NEUTROPHILS # (AUTO) 2.81 x10^3/uL (1.8-6.8); NEUTROPHILS % (AUTO) 45 % (42-75); PLATELET COUNT 275 x10^3/uL (130-400); RED BLOOD COUNT 4.63 x10^6/uL (3.82-5.3); RED CELL DISTRIBUTION WIDTH 14.5 % (9.6-15.2)
[2019-05-29 12:01] LABS: CULTURE INDICATED? YES; MICROSCOPIC INDICATED
[2019-05-29 12:04] LABS: ALANINE AMINOTRANSFERASE 23 U/L (12-78); ALBUMIN 3.4 g/dL (3.4-5.0); ANION GAP 3 mmol/L (5-15); CALCIUM 8.4 mg/dL (8.5-10.1); CHLORIDE 110 mmol/L (98-107)
[2019-05-29 12:09] LABS: ALKALINE PHOSPHATASE 82 U/L (45-117); BILIRUBIN,TOTAL 0.5 mg/dL (0.2-1.0); CREATININE 0.63 mg/dL (0.55-1.02); TOTAL PROTEIN 8.1 g/dL (6.4-8.2)
== END 2019-05-29 23:59 | disposition home or self-care (01) ==
LOC: STAR 11:03
PROVIDERS: ATTEND Obstetrics & Gynecology
DX: Z01.818 Encounter for other preprocedural examination (principal)
CPT/HCPCS: 36415; 80053; 81001; 84702; 85025; 87086